=== PATIENT | female | born 1985 | race Caucasian/White ===

== ENCOUNTER 2024-03-12 15:29 | Emergency (ER) | payer MEDICARE ==
[~2024-03-12] VITALS: Ht 172.7 cm; Wt 104.3 kg
[2024-03-12] MEDS ORDERED: AMOX TR-K CLV1 EAC2 PO (16:35)
[2024-03-12 17:20] VITALS: PULSE 93; RESP 18; TEMP 97.9; O2SAT 97
== END 2024-03-12 17:20 | disposition home or self-care (01) ==
LOC: FSED 15:35
DX: Z47.89 Encounter for other orthopedic aftercare (principal); S52.691D Other fracture of lower end of right ulna, subsequent encounter for closed fracture with routine healing; H92.01 Otalgia, right ear; R30.0 Dysuria; T74.11XA Adult physical abuse, confirmed, initial encounter; F12.10 Cannabis abuse, uncomplicated
CPT/HCPCS: 80307; 81003; 81025; 99283